=== PATIENT | female | born 2000 | race Caucasian/White ===

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

== ENCOUNTER → 2020-03-16 09:13 | Outpatient (BNVA) | payer SELFPAY | PROVIDERS: Family Provider Nurse Practitioner Family; PCP Registered Nurse; Visit Provider Registered Nurse | DX: J02.9 Acute pharyngitis, unspecified (principal) | CPT/HCPCS: 87880 ==

== ENCOUNTER → 2023-03-14 16:18 | Outpatient (BNVA) | payer OTHER, SELFPAY | PROVIDERS: Family Provider Nurse Practitioner Family; PCP Registered Nurse; Visit Provider Nurse Practitioner Women's Health | DX: Z12.4 Encounter for screening for malignant neoplasm of cervix (principal); Z01.419 Encounter for gynecological examination (general) (routine) without abnormal findings | CPT/HCPCS: 88175 ==

== ENCOUNTER 2023-06-21 17:05 | Outpatient (CLI) | payer OTHER, SELFPAY ==
[2023-06-21 18:06] LABS: Basophils % 0.4 %; Eosinophils # 0.2 10^3/uL (0.0-0.8); Eosinophils % 2.8 %; Hematocrit 37.8 % (36-47); Lymphocytes # 1.8 10^3/uL (0.8-4.8); Lymphocytes % 25.8 %; Mean Corpuscular HGB Conc 33.6 g/dL (30-55); Mean Corpuscular Hemoglobin 31.7 pg (27-33); Mean Corpuscular Volume 94.3 fl (85-98); Mean Platelet Volume 9.7 fL (7.4-10.4); Monocytes # 0.5 10^3/uL (0.2-0.9); Monocytes % 6.9 %; Neutrophils # 4.33 10^3/uL (1.8-7.7); Neutrophils % 63.8 %; Nucleated Red Blood Cells % 0 %; Platelet Count 258 10^3/cmm (157-399); Red Blood Count 4.01 10^6/uL (3.85-5.65); White Blood Count 6.79 10^3/uL (3.29-11.43)
[2023-06-21 18:37] LABS: Monoscreen Negative (Negative)
== END 2023-06-21 17:06 | disposition home or self-care (01) ==
LOC: LAB 17:09
PROVIDERS: Family Provider Nurse Practitioner Family; PCP Registered Nurse; Visit Provider Registered Nurse
DX: J02.9 Acute pharyngitis, unspecified (principal)
CPT/HCPCS: 36415; 85025; 86308

== ENCOUNTER 2024-04-08 15:40 | Outpatient (CLI) | payer OTHER, SELFPAY ==
--- NOTE | 2024-04-08 16:00 | US_ITS ---
WS: [id number] US transvaginal [id number] HISTORY: N97.9 - Female infertility, unspecified COMPARISON: None available. Uterus: 7.1 cm x 4.4 cm x 3.0 cm. Normal size anteverted uterus. No fibroid or mass. Endometrium: 0.6 cm. Tiny amount of fluid along the endometrial canal. Endocervical junction is armani l. No subendometrial glands. Right ovary: 2.5 cm x 2.2 cm x 2.7 cm. RIGHT ovary is normal size. There are multiple scattered folli cles within the ovary but the distribution and number at this time do not suggest polycystic ovarian disease by imaging. Left ovary: 4.1 cm x 2.1 cm x 2.1 cm. Slightly prominent ovary. Daughter cyst Dominant follicle with intraluminal daughter cyst. This entire complex measures 2.6 x 2.2 x 1.3 cm. T hese are often seen near the time of ovulation. No free fluid in the cul-de-sac. US/US transvaginal [id number] IMPRESSION: 1. Normal endometrium. 2. No fibroid or mass. 3. Normal ovaries.
== END 2024-04-08 15:41 | disposition home or self-care (01) ==
LOC: RAD 15:41
PROVIDERS: Family Provider Nurse Practitioner Family; PCP Registered Nurse; Visit Provider Nurse Practitioner Women's Health
DX: N97.9 Female infertility, unspecified (principal)
CPT/HCPCS: 76830

== ENCOUNTER → 2025-03-17 13:04 | Outpatient (BNVA) | payer OTHER, SELFPAY | PROVIDERS: Family Provider Nurse Practitioner Family; PCP Registered Nurse; Visit Provider Nurse Practitioner Women's Health | DX: N97.9 Female infertility, unspecified (principal) | CPT/HCPCS: 84702 ==

== ENCOUNTER 2025-03-19 08:58 | Outpatient (CLI) | payer OTHER, SELFPAY | END 2025-03-19 08:59 | disposition home or self-care (01) | PROVIDERS: Family Provider Nurse Practitioner Family; PCP Registered Nurse; Visit Provider Nurse Practitioner Women's Health | DX: O36.80X0 Pregnancy with inconclusive fetal viability, not applicable or unspecified (principal) | CPT/HCPCS: 84702 ==